=== PATIENT | male | born 1955 | race Caucasian/White ===

== ENCOUNTER 2022-12-20 14:30 | Outpatient (CLI) | payer MEDICARE, BC, SELFPAY | END 2022-12-20 14:31 | disposition home or self-care (01) | PROVIDERS: PCP Physician Assistant Medical; Visit Provider Surgery | DX: I87.331 Chronic venous hypertension (idiopathic) with ulcer and inflammation of right lower extremity (principal); L97.812 Non-pressure chronic ulcer of other part of right lower leg with fat layer exposed; E11.69 Type 2 diabetes mellitus with other specified complication; S91.002A Unspecified open wound, left ankle, initial encounter; S91.301A Unspecified open wound, right foot, initial encounter; Z79.4 Long term (current) use of insulin | CPT/HCPCS: 11042; 97597; 99213 ==

== ENCOUNTER 2022-12-22 15:11 | Outpatient (CLI) | payer MEDICARE, BC, SELFPAY | END 2022-12-22 15:12 | disposition home or self-care (01) | LOC: WOUND 15:11 | PROVIDERS: PCP Physician Assistant Medical; Visit Provider Surgery | DX: I87.331 Chronic venous hypertension (idiopathic) with ulcer and inflammation of right lower extremity (principal); L97.812 Non-pressure chronic ulcer of other part of right lower leg with fat layer exposed; E11.69 Type 2 diabetes mellitus with other specified complication; S91.002A Unspecified open wound, left ankle, initial encounter; S91.301A Unspecified open wound, right foot, initial encounter; Z79.4 Long term (current) use of insulin | CPT/HCPCS: 29581 ==

== ENCOUNTER 2022-12-25 15:45 | Outpatient (CLI) | payer MEDICARE, BC, SELFPAY | END 2022-12-25 15:46 | disposition home or self-care (01) | LOC: WOUND 15:45 | PROVIDERS: PCP Physician Assistant Medical; Visit Provider Surgery | DX: I87.311 Chronic venous hypertension (idiopathic) with ulcer of right lower extremity (principal); L97.812 Non-pressure chronic ulcer of other part of right lower leg with fat layer exposed; E11.69 Type 2 diabetes mellitus with other specified complication; S91.002A Unspecified open wound, left ankle, initial encounter; S91.301A Unspecified open wound, right foot, initial encounter; Z79.4 Long term (current) use of insulin; I87.331 Chronic venous hypertension (idiopathic) with ulcer and inflammation of right lower extremity | CPT/HCPCS: 29581 ==

== ENCOUNTER 2022-12-27 15:42 | Outpatient (CLI) | payer MEDICARE, BC, SELFPAY | END 2022-12-27 15:43 | disposition home or self-care (01) | PROVIDERS: PCP Physician Assistant Medical; Visit Provider Family Medicine | DX: I87.331 Chronic venous hypertension (idiopathic) with ulcer and inflammation of right lower extremity (principal); L97.812 Non-pressure chronic ulcer of other part of right lower leg with fat layer exposed; E11.622 Type 2 diabetes mellitus with other skin ulcer; E11.40 Type 2 diabetes mellitus with diabetic neuropathy, unspecified; L97.311 Non-pressure chronic ulcer of right ankle limited to breakdown of skin; L97.321 Non-pressure chronic ulcer of left ankle limited to breakdown of skin; Z79.4 Long term (current) use of insulin | CPT/HCPCS: 11042; 97597; 99212 ==

== ENCOUNTER 2022-12-29 14:59 | Outpatient (CLI) | payer MEDICARE, BC, SELFPAY | END 2022-12-29 15:00 | disposition home or self-care (01) | LOC: WOUND 14:59 | PROVIDERS: PCP Physician Assistant Medical; Visit Provider Family Medicine | DX: I87.331 Chronic venous hypertension (idiopathic) with ulcer and inflammation of right lower extremity (principal); L97.812 Non-pressure chronic ulcer of other part of right lower leg with fat layer exposed; E11.622 Type 2 diabetes mellitus with other skin ulcer; L97.311 Non-pressure chronic ulcer of right ankle limited to breakdown of skin; L97.321 Non-pressure chronic ulcer of left ankle limited to breakdown of skin; Z79.4 Long term (current) use of insulin | CPT/HCPCS: 29581 ==

== ENCOUNTER 2023-01-01 15:41 | Outpatient (CLI) | payer MEDICARE, BC, SELFPAY | END 2023-01-01 15:42 | disposition home or self-care (01) | LOC: WOUND 15:41 | PROVIDERS: PCP Physician Assistant Medical; Visit Provider Family Medicine | DX: I87.331 Chronic venous hypertension (idiopathic) with ulcer and inflammation of right lower extremity (principal); L97.812 Non-pressure chronic ulcer of other part of right lower leg with fat layer exposed; E11.622 Type 2 diabetes mellitus with other skin ulcer; L97.321 Non-pressure chronic ulcer of left ankle limited to breakdown of skin; Z79.4 Long term (current) use of insulin | CPT/HCPCS: 29581 ==

== ENCOUNTER 2023-01-03 15:38 | Outpatient (CLI) | payer MEDICARE, BC, SELFPAY | END 2023-01-03 15:39 | disposition home or self-care (01) | PROVIDERS: PCP Physician Assistant Medical; Visit Provider Surgery | DX: I87.331 Chronic venous hypertension (idiopathic) with ulcer and inflammation of right lower extremity (principal); L97.812 Non-pressure chronic ulcer of other part of right lower leg with fat layer exposed | CPT/HCPCS: 11042 ==

== ENCOUNTER 2023-01-05 15:40 | Outpatient (CLI) | payer MEDICARE, BC, SELFPAY | END 2023-01-05 15:41 | disposition home or self-care (01) | LOC: WOUND 15:42 | PROVIDERS: PCP Physician Assistant Medical; Visit Provider Surgery | DX: I87.331 Chronic venous hypertension (idiopathic) with ulcer and inflammation of right lower extremity (principal); L97.812 Non-pressure chronic ulcer of other part of right lower leg with fat layer exposed | CPT/HCPCS: 29581 ==

== ENCOUNTER 2023-01-08 14:00 | Outpatient (CLI) | payer MEDICARE, BC, SELFPAY | END 2023-01-08 14:01 | disposition home or self-care (01) | LOC: WOUND 14:00 | PROVIDERS: PCP Physician Assistant Medical; Visit Provider Surgery | DX: I87.331 Chronic venous hypertension (idiopathic) with ulcer and inflammation of right lower extremity (principal); L97.818 Non-pressure chronic ulcer of other part of right lower leg with other specified severity | CPT/HCPCS: 99212 ==

== ENCOUNTER 2023-01-10 14:47 | Outpatient (CLI) | payer MEDICARE, BC, SELFPAY | END 2023-01-10 14:48 | disposition home or self-care (01) | LOC: WOUND 14:47 | PROVIDERS: PCP Physician Assistant Medical; Visit Provider Nurse Practitioner Family | DX: I87.331 Chronic venous hypertension (idiopathic) with ulcer and inflammation of right lower extremity (principal); L97.812 Non-pressure chronic ulcer of other part of right lower leg with fat layer exposed | CPT/HCPCS: 29581 ==

== ENCOUNTER 2023-01-12 14:41 | Outpatient (CLI) | payer MEDICARE, BC, SELFPAY | END 2023-01-12 14:42 | disposition home or self-care (01) | LOC: WOUND 14:43 | PROVIDERS: PCP Physician Assistant Medical; Visit Provider Nurse Practitioner Family | DX: I87.331 Chronic venous hypertension (idiopathic) with ulcer and inflammation of right lower extremity (principal); L97.812 Non-pressure chronic ulcer of other part of right lower leg with fat layer exposed | CPT/HCPCS: 29581 ==

== ENCOUNTER 2023-01-15 14:21 | Outpatient (CLI) | payer MEDICARE, BC, SELFPAY | END 2023-01-15 14:22 | disposition home or self-care (01) | LOC: WOUND 14:21 | PROVIDERS: PCP Physician Assistant Medical; Visit Provider Surgery | DX: I87.331 Chronic venous hypertension (idiopathic) with ulcer and inflammation of right lower extremity (principal); L97.812 Non-pressure chronic ulcer of other part of right lower leg with fat layer exposed | CPT/HCPCS: 29581 ==

== ENCOUNTER 2023-01-17 15:45 | Outpatient (CLI) | payer MEDICARE, BC, SELFPAY | END 2023-01-17 15:46 | disposition home or self-care (01) | LOC: WOUND 15:45 | PROVIDERS: PCP Physician Assistant Medical; Visit Provider Surgery | DX: I87.331 Chronic venous hypertension (idiopathic) with ulcer and inflammation of right lower extremity (principal); L97.812 Non-pressure chronic ulcer of other part of right lower leg with fat layer exposed; E11.622 Type 2 diabetes mellitus with other skin ulcer; Z79.4 Long term (current) use of insulin | CPT/HCPCS: 11042 ==

== ENCOUNTER 2023-01-19 15:30 | Outpatient (CLI) | payer MEDICARE, BC, SELFPAY | END 2023-01-19 15:31 | disposition home or self-care (01) | LOC: WOUND 15:30 | PROVIDERS: PCP Physician Assistant Medical; Visit Provider Surgery | DX: I87.331 Chronic venous hypertension (idiopathic) with ulcer and inflammation of right lower extremity (principal); L97.812 Non-pressure chronic ulcer of other part of right lower leg with fat layer exposed | CPT/HCPCS: 29581 ==

== ENCOUNTER 2023-01-22 15:41 | Outpatient (CLI) | payer MEDICARE, BC, SELFPAY | END 2023-01-22 15:42 | disposition home or self-care (01) | LOC: WOUND 15:41 | PROVIDERS: PCP Physician Assistant Medical; Visit Provider Surgery | DX: E11.621 Type 2 diabetes mellitus with foot ulcer (principal); L97.411 Non-pressure chronic ulcer of right heel and midfoot limited to breakdown of skin; Z79.84 Long term (current) use of oral hypoglycemic drugs | CPT/HCPCS: 29581 ==

== ENCOUNTER 2023-01-24 15:34 | Outpatient (CLI) | payer MEDICARE, BC, SELFPAY | END 2023-01-24 15:35 | disposition home or self-care (01) | LOC: WOUND 15:34 | PROVIDERS: PCP Physician Assistant Medical; Visit Provider Surgery | DX: I87.331 Chronic venous hypertension (idiopathic) with ulcer and inflammation of right lower extremity (principal); I87.2 Venous insufficiency (chronic) (peripheral); L97.812 Non-pressure chronic ulcer of other part of right lower leg with fat layer exposed | CPT/HCPCS: 97597 ==

== ENCOUNTER 2023-01-26 15:16 | Outpatient (CLI) | payer MEDICARE, BC, SELFPAY | END 2023-01-26 15:17 | disposition home or self-care (01) | LOC: WOUND 15:16 | PROVIDERS: PCP Physician Assistant Medical; Visit Provider Nurse Practitioner Family | DX: I87.331 Chronic venous hypertension (idiopathic) with ulcer and inflammation of right lower extremity (principal); L97.812 Non-pressure chronic ulcer of other part of right lower leg with fat layer exposed | CPT/HCPCS: 29581 ==

== ENCOUNTER 2023-01-29 14:55 | Outpatient (CLI) | payer MEDICARE, BC, SELFPAY | END 2023-01-29 14:56 | disposition home or self-care (01) | LOC: WOUND 14:55 | PROVIDERS: PCP Physician Assistant Medical; Visit Provider Surgery | DX: I87.331 Chronic venous hypertension (idiopathic) with ulcer and inflammation of right lower extremity (principal); L97.812 Non-pressure chronic ulcer of other part of right lower leg with fat layer exposed | CPT/HCPCS: 29581 ==

== ENCOUNTER 2023-01-31 15:03 | Outpatient (CLI) | payer MEDICARE, BC, SELFPAY | END 2023-01-31 15:04 | disposition home or self-care (01) | LOC: WOUND 15:03 | PROVIDERS: PCP Physician Assistant Medical; Visit Provider Family Medicine | DX: I87.331 Chronic venous hypertension (idiopathic) with ulcer and inflammation of right lower extremity (principal); I87.2 Venous insufficiency (chronic) (peripheral); L97.812 Non-pressure chronic ulcer of other part of right lower leg with fat layer exposed | CPT/HCPCS: 11042 ==

== ENCOUNTER 2023-02-02 15:39 | Outpatient (CLI) | payer MEDICARE, BC, SELFPAY | END 2023-02-02 15:40 | disposition home or self-care (01) | LOC: WOUND 15:39 | PROVIDERS: PCP Physician Assistant Medical; Visit Provider Family Medicine | DX: I87.331 Chronic venous hypertension (idiopathic) with ulcer and inflammation of right lower extremity (principal); L97.812 Non-pressure chronic ulcer of other part of right lower leg with fat layer exposed | CPT/HCPCS: 29581 ==

== ENCOUNTER 2023-02-05 13:56 | Outpatient (CLI) | payer MEDICARE, BC, SELFPAY | END 2023-02-05 13:57 | disposition home or self-care (01) | LOC: WOUND 13:56 | PROVIDERS: PCP Physician Assistant Medical; Visit Provider Family Medicine | DX: I87.331 Chronic venous hypertension (idiopathic) with ulcer and inflammation of right lower extremity (principal); L97.812 Non-pressure chronic ulcer of other part of right lower leg with fat layer exposed | CPT/HCPCS: 29581 ==

== ENCOUNTER 2023-02-07 15:45 | Outpatient (CLI) | payer MEDICARE, BC, SELFPAY | END 2023-02-07 15:46 | disposition home or self-care (01) | LOC: WOUND 15:45 | PROVIDERS: PCP Physician Assistant Medical; Visit Provider Surgery | DX: I87.331 Chronic venous hypertension (idiopathic) with ulcer and inflammation of right lower extremity (principal); L97.812 Non-pressure chronic ulcer of other part of right lower leg with fat layer exposed; I87.2 Venous insufficiency (chronic) (peripheral) | CPT/HCPCS: 15271; Q4151 ==

== ENCOUNTER 2023-02-09 12:56 | Outpatient (CLI) | payer MEDICARE, BC, SELFPAY | END 2023-02-09 12:57 | disposition home or self-care (01) | LOC: WOUND 12:57 | PROVIDERS: PCP Physician Assistant Medical; Visit Provider Surgery | DX: I87.331 Chronic venous hypertension (idiopathic) with ulcer and inflammation of right lower extremity (principal); L97.812 Non-pressure chronic ulcer of other part of right lower leg with fat layer exposed | CPT/HCPCS: 29581 ==

== ENCOUNTER 2023-02-12 15:40 | Outpatient (CLI) | payer MEDICARE, BC, SELFPAY | END 2023-02-12 15:41 | disposition home or self-care (01) | LOC: WOUND 15:41 | PROVIDERS: PCP Physician Assistant Medical; Visit Provider Surgery | DX: I87.331 Chronic venous hypertension (idiopathic) with ulcer and inflammation of right lower extremity (principal); L97.818 Non-pressure chronic ulcer of other part of right lower leg with other specified severity | CPT/HCPCS: 29581 ==

== ENCOUNTER 2023-02-14 15:44 | Outpatient (CLI) | payer MEDICARE, BC, SELFPAY | END 2023-02-14 15:45 | disposition home or self-care (01) | LOC: WOUND 15:44 | PROVIDERS: PCP Physician Assistant Medical; Visit Provider Surgery | DX: I87.331 Chronic venous hypertension (idiopathic) with ulcer and inflammation of right lower extremity (principal); L97.812 Non-pressure chronic ulcer of other part of right lower leg with fat layer exposed; E11.621 Type 2 diabetes mellitus with foot ulcer; E11.40 Type 2 diabetes mellitus with diabetic neuropathy, unspecified; L97.411 Non-pressure chronic ulcer of right heel and midfoot limited to breakdown of skin; Z79.4 Long term (current) use of insulin | CPT/HCPCS: 97597; 99213 ==

== ENCOUNTER 2023-02-16 12:51 | Outpatient (CLI) | payer MEDICARE, BC, SELFPAY | END 2023-02-16 12:52 | disposition home or self-care (01) | LOC: WOUND 12:51 | PROVIDERS: PCP Physician Assistant Medical; Visit Provider Surgery | DX: I87.331 Chronic venous hypertension (idiopathic) with ulcer and inflammation of right lower extremity (principal); L97.818 Non-pressure chronic ulcer of other part of right lower leg with other specified severity | CPT/HCPCS: 29581 ==

== ENCOUNTER 2023-02-19 14:55 | Outpatient (CLI) | payer MEDICARE, BC, SELFPAY | END 2023-02-19 14:56 | disposition home or self-care (01) | LOC: WOUND 14:55 | PROVIDERS: PCP Physician Assistant Medical; Visit Provider Surgery | DX: I87.331 Chronic venous hypertension (idiopathic) with ulcer and inflammation of right lower extremity (principal); L97.818 Non-pressure chronic ulcer of other part of right lower leg with other specified severity | CPT/HCPCS: 29581 ==

== ENCOUNTER 2023-02-21 15:47 | Outpatient (CLI) | payer MEDICARE, BC, SELFPAY | END 2023-02-21 15:48 | disposition home or self-care (01) | LOC: WOUND 15:48 | PROVIDERS: PCP Physician Assistant Medical; Visit Provider Surgery | DX: I87.331 Chronic venous hypertension (idiopathic) with ulcer and inflammation of right lower extremity (principal); I87.2 Venous insufficiency (chronic) (peripheral); L97.818 Non-pressure chronic ulcer of other part of right lower leg with other specified severity | CPT/HCPCS: 15271; Q4151 ==

== ENCOUNTER 2023-02-26 11:23 | Outpatient (CLI) | payer MEDICARE, BC, SELFPAY | END 2023-02-26 11:24 | disposition home or self-care (01) | PROVIDERS: PCP Physician Assistant Medical; Visit Provider Surgery | DX: I87.331 Chronic venous hypertension (idiopathic) with ulcer and inflammation of right lower extremity (principal); L97.818 Non-pressure chronic ulcer of other part of right lower leg with other specified severity | CPT/HCPCS: 29581 ==

== ENCOUNTER 2023-02-28 15:36 | Outpatient (CLI) | payer MEDICARE, BC, SELFPAY | END 2023-02-28 15:37 | disposition home or self-care (01) | LOC: WOUND 15:36 | PROVIDERS: PCP Physician Assistant Medical; Visit Provider Surgery | DX: I87.331 Chronic venous hypertension (idiopathic) with ulcer and inflammation of right lower extremity (principal); I87.2 Venous insufficiency (chronic) (peripheral); L97.812 Non-pressure chronic ulcer of other part of right lower leg with fat layer exposed | CPT/HCPCS: 97597 ==

== ENCOUNTER 2023-03-02 11:27 | Outpatient (CLI) | payer MEDICARE, BC, SELFPAY | END 2023-03-02 11:28 | disposition home or self-care (01) | LOC: WOUND 11:27 | PROVIDERS: PCP Physician Assistant Medical; Visit Provider Nurse Practitioner Family | DX: I87.331 Chronic venous hypertension (idiopathic) with ulcer and inflammation of right lower extremity (principal); L97.818 Non-pressure chronic ulcer of other part of right lower leg with other specified severity | CPT/HCPCS: 29581 ==

== ENCOUNTER 2023-03-05 11:24 | Outpatient (CLI) | payer MEDICARE, BC, SELFPAY | END 2023-03-05 11:25 | disposition home or self-care (01) | LOC: WOUND 11:24 | PROVIDERS: PCP Physician Assistant Medical; Visit Provider Nurse Practitioner Family | DX: I87.331 Chronic venous hypertension (idiopathic) with ulcer and inflammation of right lower extremity (principal); L97.818 Non-pressure chronic ulcer of other part of right lower leg with other specified severity | CPT/HCPCS: 29581 ==

== ENCOUNTER 2023-03-07 15:42 | Outpatient (CLI) | payer MEDICARE, BC, SELFPAY | END 2023-03-07 15:43 | disposition home or self-care (01) | LOC: WOUND 15:42 | PROVIDERS: PCP Physician Assistant Medical; Visit Provider Surgery | DX: I87.331 Chronic venous hypertension (idiopathic) with ulcer and inflammation of right lower extremity (principal); L97.812 Non-pressure chronic ulcer of other part of right lower leg with fat layer exposed; I87.2 Venous insufficiency (chronic) (peripheral) | CPT/HCPCS: 15271; Q4151 ==

== ENCOUNTER 2023-03-09 15:33 | Outpatient (CLI) | payer MEDICARE, BC, SELFPAY | END 2023-03-09 15:34 | disposition home or self-care (01) | LOC: WOUND 15:33 | PROVIDERS: PCP Physician Assistant Medical; Visit Provider Nurse Practitioner Family | DX: I87.331 Chronic venous hypertension (idiopathic) with ulcer and inflammation of right lower extremity (principal); L97.818 Non-pressure chronic ulcer of other part of right lower leg with other specified severity | CPT/HCPCS: 29581 ==

== ENCOUNTER 2023-03-14 15:52 | Outpatient (CLI) | payer MEDICARE, BC, SELFPAY | END 2023-03-14 15:53 | disposition home or self-care (01) | LOC: WOUND 15:52 | PROVIDERS: PCP Physician Assistant Medical; Visit Provider Surgery | DX: I87.331 Chronic venous hypertension (idiopathic) with ulcer and inflammation of right lower extremity (principal); I87.2 Venous insufficiency (chronic) (peripheral); L97.812 Non-pressure chronic ulcer of other part of right lower leg with fat layer exposed | CPT/HCPCS: 11042 ==

== ENCOUNTER 2023-03-16 15:34 | Outpatient (CLI) | payer MEDICARE, BC, SELFPAY | END 2023-03-16 15:35 | disposition home or self-care (01) | LOC: WOUND 15:35 | PROVIDERS: PCP Physician Assistant Medical; Visit Provider Surgery | DX: I87.331 Chronic venous hypertension (idiopathic) with ulcer and inflammation of right lower extremity (principal); L97.818 Non-pressure chronic ulcer of other part of right lower leg with other specified severity | CPT/HCPCS: 29581 ==

== ENCOUNTER 2023-03-19 15:31 | Outpatient (CLI) | payer MEDICARE, BC, SELFPAY | END 2023-03-19 15:32 | disposition home or self-care (01) | LOC: WOUND 15:31 | PROVIDERS: PCP Physician Assistant Medical; Visit Provider Surgery | DX: I87.331 Chronic venous hypertension (idiopathic) with ulcer and inflammation of right lower extremity (principal); L97.818 Non-pressure chronic ulcer of other part of right lower leg with other specified severity | CPT/HCPCS: 29581 ==

== ENCOUNTER 2023-03-21 15:32 | Outpatient (CLI) | payer MEDICARE, BC, SELFPAY | END 2023-03-21 15:33 | disposition home or self-care (01) | LOC: WOUND 15:32 | PROVIDERS: PCP Physician Assistant Medical; Visit Provider Surgery | DX: I87.331 Chronic venous hypertension (idiopathic) with ulcer and inflammation of right lower extremity (principal); L97.812 Non-pressure chronic ulcer of other part of right lower leg with fat layer exposed | CPT/HCPCS: 11042 ==

== ENCOUNTER 2023-03-23 15:42 | Outpatient (CLI) | payer MEDICARE, BC, SELFPAY | END 2023-03-23 15:43 | disposition home or self-care (01) | LOC: WOUND 15:42 | PROVIDERS: PCP Physician Assistant Medical; Visit Provider Nurse Practitioner Family | DX: I87.331 Chronic venous hypertension (idiopathic) with ulcer and inflammation of right lower extremity (principal); L97.818 Non-pressure chronic ulcer of other part of right lower leg with other specified severity | CPT/HCPCS: 29581 ==

== ENCOUNTER 2023-03-28 15:29 | Outpatient (CLI) | payer MEDICARE, BC, SELFPAY | END 2023-03-28 15:30 | disposition home or self-care (01) | LOC: WOUND 15:29 | PROVIDERS: PCP Physician Assistant Medical; Visit Provider Surgery | DX: I87.331 Chronic venous hypertension (idiopathic) with ulcer and inflammation of right lower extremity (principal); L97.818 Non-pressure chronic ulcer of other part of right lower leg with other specified severity | CPT/HCPCS: 15271; Q4151 ==

== ENCOUNTER 2023-03-30 14:02 | Outpatient (CLI) | payer MEDICARE, BC, SELFPAY | END 2023-03-30 14:03 | disposition home or self-care (01) | LOC: WOUND 14:02 | PROVIDERS: PCP Physician Assistant Medical; Visit Provider Surgery | DX: I87.331 Chronic venous hypertension (idiopathic) with ulcer and inflammation of right lower extremity (principal); L97.818 Non-pressure chronic ulcer of other part of right lower leg with other specified severity | CPT/HCPCS: 29581 ==

== ENCOUNTER 2023-04-04 15:53 | Outpatient (CLI) | payer MEDICARE, BC, SELFPAY | END 2023-04-04 15:54 | disposition home or self-care (01) | LOC: WOUND 15:53 | PROVIDERS: PCP Physician Assistant Medical; Visit Provider Surgery | DX: I87.331 Chronic venous hypertension (idiopathic) with ulcer and inflammation of right lower extremity (principal); I87.2 Venous insufficiency (chronic) (peripheral); L97.812 Non-pressure chronic ulcer of other part of right lower leg with fat layer exposed | CPT/HCPCS: 11042; G0463 ==

== ENCOUNTER 2023-04-06 14:34 | Outpatient (CLI) | payer MEDICARE, BC, SELFPAY | END 2023-04-06 14:35 | disposition home or self-care (01) | LOC: WOUND 14:34 | PROVIDERS: PCP Physician Assistant Medical; Visit Provider Surgery | DX: I87.331 Chronic venous hypertension (idiopathic) with ulcer and inflammation of right lower extremity (principal); L97.818 Non-pressure chronic ulcer of other part of right lower leg with other specified severity | CPT/HCPCS: 29581 ==

== ENCOUNTER 2023-04-09 14:54 | Outpatient (CLI) | payer MEDICARE, BC, SELFPAY | END 2023-04-09 14:55 | disposition home or self-care (01) | LOC: WOUND 14:54 | PROVIDERS: PCP Physician Assistant Medical; Visit Provider Surgery | DX: I87.331 Chronic venous hypertension (idiopathic) with ulcer and inflammation of right lower extremity (principal); L97.818 Non-pressure chronic ulcer of other part of right lower leg with other specified severity | CPT/HCPCS: 29581 ==

== ENCOUNTER 2023-04-13 13:59 | Outpatient (CLI) | payer MEDICARE, BC, SELFPAY | END 2023-04-13 14:00 | disposition home or self-care (01) | LOC: WOUND 13:59 | PROVIDERS: PCP Physician Assistant Medical; Visit Provider Surgery | DX: I87.331 Chronic venous hypertension (idiopathic) with ulcer and inflammation of right lower extremity (principal); L97.818 Non-pressure chronic ulcer of other part of right lower leg with other specified severity | CPT/HCPCS: 29581 ==

== ENCOUNTER 2023-04-16 15:29 | Outpatient (CLI) | payer MEDICARE, BC, SELFPAY | END 2023-04-16 15:30 | disposition home or self-care (01) | LOC: WOUND 15:29 | PROVIDERS: PCP Physician Assistant Medical; Visit Provider Surgery | DX: I87.331 Chronic venous hypertension (idiopathic) with ulcer and inflammation of right lower extremity (principal); L97.818 Non-pressure chronic ulcer of other part of right lower leg with other specified severity | CPT/HCPCS: 29581 ==

== ENCOUNTER 2023-04-18 15:41 | Outpatient (CLI) | payer MEDICARE, BC, SELFPAY | END 2023-04-18 15:42 | disposition home or self-care (01) | LOC: WOUND 15:41 | PROVIDERS: PCP Physician Assistant Medical; Visit Provider Surgery | DX: I87.331 Chronic venous hypertension (idiopathic) with ulcer and inflammation of right lower extremity (principal); L97.812 Non-pressure chronic ulcer of other part of right lower leg with fat layer exposed; E11.40 Type 2 diabetes mellitus with diabetic neuropathy, unspecified; Z79.4 Long term (current) use of insulin | CPT/HCPCS: 97597 ==

== ENCOUNTER 2023-04-20 15:16 | Outpatient (CLI) | payer MEDICARE, BC, SELFPAY | END 2023-04-20 15:17 | disposition home or self-care (01) | LOC: WOUND 15:16 | PROVIDERS: PCP Physician Assistant Medical; Visit Provider Surgery | DX: I87.331 Chronic venous hypertension (idiopathic) with ulcer and inflammation of right lower extremity (principal); L97.818 Non-pressure chronic ulcer of other part of right lower leg with other specified severity | CPT/HCPCS: 29581 ==

== ENCOUNTER 2023-04-23 13:32 | Outpatient (CLI) | payer MEDICARE, BC, SELFPAY | END 2023-04-23 13:33 | disposition home or self-care (01) | LOC: WOUND 13:32 | PROVIDERS: PCP Physician Assistant Medical; Visit Provider Surgery | DX: I87.331 Chronic venous hypertension (idiopathic) with ulcer and inflammation of right lower extremity (principal); L97.818 Non-pressure chronic ulcer of other part of right lower leg with other specified severity | CPT/HCPCS: 29581 ==

== ENCOUNTER 2023-04-25 15:17 | Outpatient (CLI) | payer MEDICARE, BC, SELFPAY | END 2023-04-25 15:18 | disposition home or self-care (01) | LOC: WOUND 15:18 | PROVIDERS: PCP Physician Assistant Medical; Visit Provider Surgery | DX: I87.331 Chronic venous hypertension (idiopathic) with ulcer and inflammation of right lower extremity (principal); L97.818 Non-pressure chronic ulcer of other part of right lower leg with other specified severity | CPT/HCPCS: G0463 ==

== ENCOUNTER 2023-04-27 15:26 | Outpatient (CLI) | payer MEDICARE, BC, SELFPAY | END 2023-04-27 15:27 | disposition home or self-care (01) | LOC: WOUND 15:27 | PROVIDERS: PCP Physician Assistant Medical; Visit Provider Surgery | DX: I87.331 Chronic venous hypertension (idiopathic) with ulcer and inflammation of right lower extremity (principal); L97.818 Non-pressure chronic ulcer of other part of right lower leg with other specified severity | CPT/HCPCS: G0463 ==

== ENCOUNTER 2023-04-30 15:28 | Outpatient (CLI) | payer MEDICARE, BC, SELFPAY | END 2023-04-30 15:29 | disposition home or self-care (01) | LOC: WOUND 15:29 | PROVIDERS: PCP Physician Assistant Medical; Visit Provider Surgery | DX: I87.331 Chronic venous hypertension (idiopathic) with ulcer and inflammation of right lower extremity (principal); L97.818 Non-pressure chronic ulcer of other part of right lower leg with other specified severity | CPT/HCPCS: G0463 ==

== ENCOUNTER 2023-05-02 15:37 | Outpatient (CLI) | payer MEDICARE, BC, SELFPAY | END 2023-05-02 15:38 | disposition home or self-care (01) | LOC: WOUND 15:38 | PROVIDERS: PCP Physician Assistant Medical; Visit Provider Surgery | DX: I87.331 Chronic venous hypertension (idiopathic) with ulcer and inflammation of right lower extremity (principal); L97.812 Non-pressure chronic ulcer of other part of right lower leg with fat layer exposed | CPT/HCPCS: 97597 ==

== ENCOUNTER 2023-05-04 10:27 | Outpatient (CLI) | payer MEDICARE, BC, SELFPAY | END 2023-05-04 10:28 | disposition home or self-care (01) | LOC: WOUND 10:27 | PROVIDERS: PCP Physician Assistant Medical; Visit Provider Surgery | DX: I87.311 Chronic venous hypertension (idiopathic) with ulcer of right lower extremity (principal); L97.818 Non-pressure chronic ulcer of other part of right lower leg with other specified severity | CPT/HCPCS: G0463 ==

== ENCOUNTER 2023-05-07 15:39 | Outpatient (CLI) | payer MEDICARE, BC, SELFPAY | END 2023-05-07 15:40 | disposition home or self-care (01) | LOC: WOUND 15:39 | PROVIDERS: PCP Physician Assistant Medical; Visit Provider Surgery | DX: I87.331 Chronic venous hypertension (idiopathic) with ulcer and inflammation of right lower extremity (principal); L97.818 Non-pressure chronic ulcer of other part of right lower leg with other specified severity | CPT/HCPCS: G0463 ==

== ENCOUNTER 2023-05-09 15:37 | Outpatient (CLI) | payer MEDICARE, BC, SELFPAY | END 2023-05-09 15:38 | disposition home or self-care (01) | LOC: WOUND 15:37 | PROVIDERS: PCP Physician Assistant Medical; Visit Provider Surgery | DX: I87.331 Chronic venous hypertension (idiopathic) with ulcer and inflammation of right lower extremity (principal); I87.2 Venous insufficiency (chronic) (peripheral); L97.812 Non-pressure chronic ulcer of other part of right lower leg with fat layer exposed; E11.40 Type 2 diabetes mellitus with diabetic neuropathy, unspecified; Z79.4 Long term (current) use of insulin | CPT/HCPCS: 97597 ==

== ENCOUNTER 2023-05-11 15:12 | Outpatient (CLI) | payer MEDICARE, BC, SELFPAY | END 2023-05-11 15:13 | disposition home or self-care (01) | LOC: WOUND 15:12 | PROVIDERS: PCP Physician Assistant Medical; Visit Provider Surgery | DX: I87.331 Chronic venous hypertension (idiopathic) with ulcer and inflammation of right lower extremity (principal); L97.812 Non-pressure chronic ulcer of other part of right lower leg with fat layer exposed | CPT/HCPCS: G0463 ==

== ENCOUNTER 2023-05-14 15:37 | Outpatient (CLI) | payer MEDICARE, BC, SELFPAY | END 2023-05-14 15:38 | disposition home or self-care (01) | LOC: WOUND 15:37 | PROVIDERS: PCP Physician Assistant Medical; Visit Provider Surgery | DX: I87.331 Chronic venous hypertension (idiopathic) with ulcer and inflammation of right lower extremity (principal); L97.818 Non-pressure chronic ulcer of other part of right lower leg with other specified severity | CPT/HCPCS: G0463 ==

== ENCOUNTER 2023-05-16 15:40 | Outpatient (CLI) | payer MEDICARE, BC, SELFPAY | END 2023-05-16 15:41 | disposition home or self-care (01) | LOC: WOUND 15:40 | PROVIDERS: PCP Physician Assistant Medical; Visit Provider Surgery | DX: I87.331 Chronic venous hypertension (idiopathic) with ulcer and inflammation of right lower extremity (principal); E11.40 Type 2 diabetes mellitus with diabetic neuropathy, unspecified; L97.812 Non-pressure chronic ulcer of other part of right lower leg with fat layer exposed; Z79.4 Long term (current) use of insulin | CPT/HCPCS: 97597 ==

== ENCOUNTER 2023-05-18 15:32 | Outpatient (CLI) | payer MEDICARE, BC, SELFPAY | END 2023-05-18 15:33 | disposition home or self-care (01) | LOC: WOUND 15:32 | PROVIDERS: PCP Physician Assistant Medical; Visit Provider Surgery | DX: I87.331 Chronic venous hypertension (idiopathic) with ulcer and inflammation of right lower extremity (principal); E11.40 Type 2 diabetes mellitus with diabetic neuropathy, unspecified; L97.818 Non-pressure chronic ulcer of other part of right lower leg with other specified severity | CPT/HCPCS: G0463 ==

== ENCOUNTER 2023-05-21 15:33 | Outpatient (CLI) | payer MEDICARE, BC, SELFPAY | END 2023-05-21 15:34 | disposition home or self-care (01) | LOC: WOUND 15:33 | PROVIDERS: PCP Physician Assistant Medical; Visit Provider Surgery | DX: I87.331 Chronic venous hypertension (idiopathic) with ulcer and inflammation of right lower extremity (principal); L97.818 Non-pressure chronic ulcer of other part of right lower leg with other specified severity | CPT/HCPCS: G0463 ==

== ENCOUNTER 2023-05-22 08:38 | Outpatient (CLI) | payer MEDICARE, BC, SELFPAY | END 2023-05-22 08:39 | disposition home or self-care (01) | LOC: INJ CL 08:38 | PROVIDERS: PCP Physician Assistant Medical; Visit Provider Family Medicine | DX: M54.16 Radiculopathy, lumbar region (principal); M51.36 Other intervertebral disc degeneration, lumbar region | CPT/HCPCS: 64483; J1100; Q9966 ==

== ENCOUNTER 2023-05-23 15:02 | Outpatient (CLI) | payer MEDICARE, BC, SELFPAY | END 2023-05-23 15:03 | disposition home or self-care (01) | LOC: WOUND 15:02 | PROVIDERS: PCP Physician Assistant Medical; Visit Provider Physician Assistant | DX: I87.331 Chronic venous hypertension (idiopathic) with ulcer and inflammation of right lower extremity (principal); E11.40 Type 2 diabetes mellitus with diabetic neuropathy, unspecified; L97.812 Non-pressure chronic ulcer of other part of right lower leg with fat layer exposed; Z79.84 Long term (current) use of oral hypoglycemic drugs | CPT/HCPCS: 97597 ==

== ENCOUNTER 2023-05-25 14:07 | Outpatient (CLI) | payer MEDICARE, BC, SELFPAY | END 2023-05-25 14:08 | disposition home or self-care (01) | LOC: WOUND 14:08 | PROVIDERS: PCP Physician Assistant Medical; Visit Provider Surgery | DX: I87.331 Chronic venous hypertension (idiopathic) with ulcer and inflammation of right lower extremity (principal); L97.818 Non-pressure chronic ulcer of other part of right lower leg with other specified severity | CPT/HCPCS: G0463 ==

== ENCOUNTER 2023-05-28 14:49 | Outpatient (CLI) | payer MEDICARE, BC, SELFPAY | END 2023-05-28 14:50 | disposition home or self-care (01) | LOC: WOUND 14:50 | PROVIDERS: PCP Physician Assistant Medical; Visit Provider Surgery | DX: I87.331 Chronic venous hypertension (idiopathic) with ulcer and inflammation of right lower extremity (principal); L97.818 Non-pressure chronic ulcer of other part of right lower leg with other specified severity | CPT/HCPCS: G0463 ==

== ENCOUNTER 2023-05-30 14:45 | Outpatient (CLI) | payer MEDICARE, BC, SELFPAY | END 2023-05-30 14:46 | disposition home or self-care (01) | LOC: WOUND 14:46 | PROVIDERS: PCP Physician Assistant Medical; Visit Provider Surgery | DX: I87.331 Chronic venous hypertension (idiopathic) with ulcer and inflammation of right lower extremity (principal); I87.2 Venous insufficiency (chronic) (peripheral); L97.812 Non-pressure chronic ulcer of other part of right lower leg with fat layer exposed | CPT/HCPCS: 97597 ==

== ENCOUNTER 2023-06-04 15:26 | Outpatient (CLI) | payer MEDICARE, BC, SELFPAY | END 2023-06-04 15:27 | disposition home or self-care (01) | LOC: WOUND 15:27 | PROVIDERS: PCP Physician Assistant Medical; Visit Provider Physician Assistant | DX: I87.311 Chronic venous hypertension (idiopathic) with ulcer of right lower extremity (principal); L97.818 Non-pressure chronic ulcer of other part of right lower leg with other specified severity | CPT/HCPCS: G0463 ==

== ENCOUNTER 2023-06-06 14:27 | Outpatient (CLI) | payer MEDICARE, BC, SELFPAY | END 2023-06-06 14:28 | disposition home or self-care (01) | LOC: WOUND 14:27 | PROVIDERS: PCP Physician Assistant Medical; Visit Provider Surgery | DX: I87.2 Venous insufficiency (chronic) (peripheral) (principal); E11.40 Type 2 diabetes mellitus with diabetic neuropathy, unspecified; L97.812 Non-pressure chronic ulcer of other part of right lower leg with fat layer exposed; Z79.4 Long term (current) use of insulin | CPT/HCPCS: 97597 ==

== ENCOUNTER 2023-06-08 15:20 | Outpatient (CLI) | payer MEDICARE, BC, SELFPAY | END 2023-06-08 15:21 | disposition home or self-care (01) | LOC: WOUND 15:20 | PROVIDERS: PCP Physician Assistant Medical; Visit Provider Surgery | DX: I87.311 Chronic venous hypertension (idiopathic) with ulcer of right lower extremity (principal); L97.812 Non-pressure chronic ulcer of other part of right lower leg with fat layer exposed | CPT/HCPCS: G0463 ==

== ENCOUNTER 2023-06-11 15:00 | Outpatient (CLI) | payer MEDICARE, BC, SELFPAY | END 2023-06-11 15:01 | disposition home or self-care (01) | LOC: WOUND 15:00 | PROVIDERS: PCP Physician Assistant Medical; Visit Provider Surgery | DX: I87.2 Venous insufficiency (chronic) (peripheral) (principal); L97.212 Non-pressure chronic ulcer of right calf with fat layer exposed | CPT/HCPCS: G0463 ==

== ENCOUNTER 2023-06-13 15:00 | Outpatient (CLI) | payer MEDICARE, BC, SELFPAY | END 2023-06-13 15:01 | disposition home or self-care (01) | LOC: WOUND 15:00 | PROVIDERS: PCP Physician Assistant Medical; Visit Provider Family Medicine | DX: I87.311 Chronic venous hypertension (idiopathic) with ulcer of right lower extremity (principal); L97.812 Non-pressure chronic ulcer of other part of right lower leg with fat layer exposed | CPT/HCPCS: 11042 ==

== ENCOUNTER 2023-06-15 14:57 | Outpatient (CLI) | payer MEDICARE, BC, SELFPAY | END 2023-06-15 14:58 | disposition home or self-care (01) | LOC: WOUND 14:58 | PROVIDERS: PCP Physician Assistant Medical; Visit Provider Surgery | DX: I87.311 Chronic venous hypertension (idiopathic) with ulcer of right lower extremity (principal); L97.812 Non-pressure chronic ulcer of other part of right lower leg with fat layer exposed | CPT/HCPCS: G0463 ==

== ENCOUNTER 2023-06-18 14:03 | Outpatient (CLI) | payer MEDICARE, BC, SELFPAY | END 2023-06-18 14:04 | disposition home or self-care (01) | LOC: WOUND 14:03 | PROVIDERS: PCP Physician Assistant Medical; Visit Provider Surgery | DX: Z48.00 Encounter for change or removal of nonsurgical wound dressing (principal) | CPT/HCPCS: G0463 ==

== ENCOUNTER 2023-06-20 15:12 | Outpatient (CLI) | payer MEDICARE, BC, SELFPAY | END 2023-06-20 15:13 | disposition home or self-care (01) | LOC: WOUND 15:12 | PROVIDERS: PCP Physician Assistant Medical; Visit Provider Surgery | DX: I87.2 Venous insufficiency (chronic) (peripheral) (principal); I87.311 Chronic venous hypertension (idiopathic) with ulcer of right lower extremity; L97.818 Non-pressure chronic ulcer of other part of right lower leg with other specified severity; E11.40 Type 2 diabetes mellitus with diabetic neuropathy, unspecified; Z79.84 Long term (current) use of oral hypoglycemic drugs | CPT/HCPCS: G0463 ==

== ENCOUNTER 2024-01-15 13:43 | Outpatient (CLI) | payer MEDICARE, BC, SELFPAY | END 2024-01-15 13:44 | disposition home or self-care (01) | LOC: WOUND 13:44 | PROVIDERS: PCP Physician Assistant Medical; Visit Provider Nurse Practitioner Family | DX: E11.622 Type 2 diabetes mellitus with other skin ulcer (principal); I87.2 Venous insufficiency (chronic) (peripheral); L97.828 Non-pressure chronic ulcer of other part of left lower leg with other specified severity; L97.228 Non-pressure chronic ulcer of left calf with other specified severity; Z79.84 Long term (current) use of oral hypoglycemic drugs | CPT/HCPCS: 11042; 87070; 87186; G0463 ==

== ENCOUNTER 2024-01-18 11:31 | Outpatient (CLI) | payer MEDICARE, BC, SELFPAY | END 2024-01-18 11:32 | disposition home or self-care (01) | LOC: WOUND 11:32 | PROVIDERS: PCP Physician Assistant Medical; Visit Provider Nurse Practitioner Family | DX: E11.622 Type 2 diabetes mellitus with other skin ulcer (principal); I87.2 Venous insufficiency (chronic) (peripheral); L97.228 Non-pressure chronic ulcer of left calf with other specified severity | CPT/HCPCS: 29581 ==

== ENCOUNTER 2024-01-22 13:09 | Outpatient (CLI) | payer MEDICARE, BC, SELFPAY | END 2024-01-22 13:10 | disposition home or self-care (01) | LOC: WOUND 13:09 | PROVIDERS: PCP Physician Assistant Medical; Visit Provider Nurse Practitioner Family | DX: E11.622 Type 2 diabetes mellitus with other skin ulcer (principal); I87.2 Venous insufficiency (chronic) (peripheral); L97.228 Non-pressure chronic ulcer of left calf with other specified severity; L97.828 Non-pressure chronic ulcer of other part of left lower leg with other specified severity; B96.89 Other specified bacterial agents as the cause of diseases classified elsewhere; Z79.4 Long term (current) use of insulin | CPT/HCPCS: 11042; 96372; J0696 ==

== ENCOUNTER 2024-01-25 11:12 | Outpatient (CLI) | payer MEDICARE, BC, SELFPAY | END 2024-01-25 11:13 | disposition home or self-care (01) | LOC: WOUND 11:13 | PROVIDERS: PCP Physician Assistant Medical; Visit Provider Nurse Practitioner Family | DX: E11.622 Type 2 diabetes mellitus with other skin ulcer (principal); I87.2 Venous insufficiency (chronic) (peripheral); L97.228 Non-pressure chronic ulcer of left calf with other specified severity; Z79.4 Long term (current) use of insulin | CPT/HCPCS: 29581 ==

== ENCOUNTER 2024-01-29 13:22 | Outpatient (CLI) | payer MEDICARE, BC, SELFPAY | END 2024-01-29 13:23 | disposition home or self-care (01) | LOC: WOUND 13:22 | PROVIDERS: PCP Physician Assistant Medical; Visit Provider Nurse Practitioner Family | DX: I87.2 Venous insufficiency (chronic) (peripheral) (principal); E11.622 Type 2 diabetes mellitus with other skin ulcer; L97.228 Non-pressure chronic ulcer of left calf with other specified severity; L97.822 Non-pressure chronic ulcer of other part of left lower leg with fat layer exposed | CPT/HCPCS: 11042; 97597 ==

== ENCOUNTER 2024-02-01 15:42 | Outpatient (CLI) | payer MEDICARE, BC, SELFPAY | END 2024-02-01 15:43 | disposition home or self-care (01) | LOC: WOUND 15:42 | PROVIDERS: PCP Physician Assistant Medical; Visit Provider Nurse Practitioner Family | DX: E11.622 Type 2 diabetes mellitus with other skin ulcer (principal); I87.2 Venous insufficiency (chronic) (peripheral); L97.222 Non-pressure chronic ulcer of left calf with fat layer exposed | CPT/HCPCS: G0463 ==

== ENCOUNTER 2024-02-05 13:01 | Outpatient (CLI) | payer MEDICARE, BC, SELFPAY | END 2024-02-05 13:02 | disposition home or self-care (01) | LOC: WOUND 13:01 | PROVIDERS: PCP Physician Assistant Medical; Visit Provider Nurse Practitioner Family | DX: I87.2 Venous insufficiency (chronic) (peripheral) (principal); E11.622 Type 2 diabetes mellitus with other skin ulcer; L97.228 Non-pressure chronic ulcer of left calf with other specified severity; L97.828 Non-pressure chronic ulcer of other part of left lower leg with other specified severity; Z79.84 Long term (current) use of oral hypoglycemic drugs | CPT/HCPCS: 97597 ==

== ENCOUNTER 2024-02-08 14:58 | Outpatient (CLI) | payer MEDICARE, BC, SELFPAY | END 2024-02-08 14:59 | disposition home or self-care (01) | LOC: WOUND 14:59 | PROVIDERS: PCP Physician Assistant Medical; Visit Provider Nurse Practitioner Family | DX: E11.622 Type 2 diabetes mellitus with other skin ulcer (principal); I87.2 Venous insufficiency (chronic) (peripheral); L97.228 Non-pressure chronic ulcer of left calf with other specified severity; Z79.84 Long term (current) use of oral hypoglycemic drugs | CPT/HCPCS: G0463 ==

== ENCOUNTER 2024-02-12 13:13 | Outpatient (CLI) | payer MEDICARE, BC, SELFPAY | END 2024-02-12 13:14 | disposition home or self-care (01) | LOC: WOUND 13:13 | PROVIDERS: PCP Physician Assistant Medical; Visit Provider Family Medicine | DX: I87.2 Venous insufficiency (chronic) (peripheral) (principal); E11.622 Type 2 diabetes mellitus with other skin ulcer; L97.222 Non-pressure chronic ulcer of left calf with fat layer exposed; L97.822 Non-pressure chronic ulcer of other part of left lower leg with fat layer exposed; Z79.84 Long term (current) use of oral hypoglycemic drugs | CPT/HCPCS: 11042; G0463 ==

== ENCOUNTER 2024-02-13 14:50 | Outpatient (REF) | payer MEDICARE, BC, SELFPAY ==
[2024-02-13 16:03] LABS: C.Difficile Negative (Negative); CDIFFEPI 027 PRESUMPTIVE NEGATIVE (Negative)
== END 2024-02-13 14:51 | disposition home or self-care (01) ==
LOC: NPINS 14:50
PROVIDERS: PCP Physician Assistant Medical; Visit Provider Family Medicine
DX: A09 Infectious gastroenteritis and colitis, unspecified (principal)
CPT/HCPCS: 87493

== ENCOUNTER 2024-02-15 12:39 | Outpatient (CLI) | payer MEDICARE, BC, SELFPAY | END 2024-02-15 12:40 | disposition home or self-care (01) | LOC: WOUND 12:39 | PROVIDERS: PCP Physician Assistant Medical; Visit Provider Family Medicine | DX: I87.2 Venous insufficiency (chronic) (peripheral) (principal); E11.621 Type 2 diabetes mellitus with foot ulcer; L97.228 Non-pressure chronic ulcer of left calf with other specified severity; Z79.84 Long term (current) use of oral hypoglycemic drugs | CPT/HCPCS: G0463 ==

== ENCOUNTER 2024-02-19 13:15 | Outpatient (CLI) | payer MEDICARE, BC, SELFPAY | END 2024-02-19 13:16 | disposition home or self-care (01) | LOC: WOUND 13:15 | PROVIDERS: PCP Physician Assistant Medical; Visit Provider Nurse Practitioner Family | DX: I87.2 Venous insufficiency (chronic) (peripheral) (principal); E11.622 Type 2 diabetes mellitus with other skin ulcer; L97.228 Non-pressure chronic ulcer of left calf with other specified severity; L97.828 Non-pressure chronic ulcer of other part of left lower leg with other specified severity; Z79.84 Long term (current) use of oral hypoglycemic drugs | CPT/HCPCS: 11042 ==

== ENCOUNTER 2024-02-22 11:25 | Outpatient (CLI) | payer MEDICARE, BC, SELFPAY | END 2024-02-22 11:26 | disposition home or self-care (01) | LOC: WOUND 11:26 | PROVIDERS: PCP Physician Assistant Medical; Visit Provider Nurse Practitioner Family | DX: I87.2 Venous insufficiency (chronic) (peripheral) (principal); E11.622 Type 2 diabetes mellitus with other skin ulcer; L97.228 Non-pressure chronic ulcer of left calf with other specified severity; Z79.4 Long term (current) use of insulin | CPT/HCPCS: G0463 ==

== ENCOUNTER 2024-02-26 13:28 | Outpatient (CLI) | payer MEDICARE, BC, SELFPAY | END 2024-02-26 13:29 | disposition home or self-care (01) | LOC: WOUND 13:28 | PROVIDERS: PCP Physician Assistant Medical; Visit Provider Nurse Practitioner Family | DX: I87.2 Venous insufficiency (chronic) (peripheral) (principal); L97.228 Non-pressure chronic ulcer of left calf with other specified severity; L97.828 Non-pressure chronic ulcer of other part of left lower leg with other specified severity | CPT/HCPCS: 97597 ==

== ENCOUNTER 2024-02-29 12:46 | Outpatient (CLI) | payer MEDICARE, BC, SELFPAY | END 2024-02-29 12:47 | disposition home or self-care (01) | LOC: WOUND 12:46 | PROVIDERS: PCP Physician Assistant Medical; Visit Provider Nurse Practitioner Family | DX: I87.2 Venous insufficiency (chronic) (peripheral) (principal); E11.622 Type 2 diabetes mellitus with other skin ulcer; L97.228 Non-pressure chronic ulcer of left calf with other specified severity; Z79.4 Long term (current) use of insulin | CPT/HCPCS: G0463 ==

== ENCOUNTER 2024-03-04 13:14 | Outpatient (CLI) | payer MEDICARE, BC, SELFPAY | END 2024-03-04 13:15 | disposition home or self-care (01) | LOC: WOUND 13:14 | PROVIDERS: PCP Physician Assistant Medical; Visit Provider Nurse Practitioner Family | DX: I87.2 Venous insufficiency (chronic) (peripheral) (principal); E11.622 Type 2 diabetes mellitus with other skin ulcer; L97.228 Non-pressure chronic ulcer of left calf with other specified severity; L97.828 Non-pressure chronic ulcer of other part of left lower leg with other specified severity; Z79.4 Long term (current) use of insulin | CPT/HCPCS: 11042; 97597 ==

== ENCOUNTER 2024-03-07 12:59 | Outpatient (CLI) | payer MEDICARE, BC, SELFPAY | END 2024-03-07 13:00 | disposition home or self-care (01) | LOC: WOUND 12:59 | PROVIDERS: PCP Physician Assistant Medical; Visit Provider Nurse Practitioner Family | DX: I87.2 Venous insufficiency (chronic) (peripheral) (principal); E11.622 Type 2 diabetes mellitus with other skin ulcer; L97.228 Non-pressure chronic ulcer of left calf with other specified severity; Z79.4 Long term (current) use of insulin | CPT/HCPCS: G0463 ==

== ENCOUNTER 2024-03-11 13:12 | Outpatient (CLI) | payer MEDICARE, BC, SELFPAY | END 2024-03-11 13:13 | disposition home or self-care (01) | LOC: WOUND 13:12 | PROVIDERS: PCP Physician Assistant Medical; Visit Provider Nurse Practitioner Family | DX: I87.2 Venous insufficiency (chronic) (peripheral) (principal); E11.622 Type 2 diabetes mellitus with other skin ulcer; L97.228 Non-pressure chronic ulcer of left calf with other specified severity; L97.828 Non-pressure chronic ulcer of other part of left lower leg with other specified severity; Z79.4 Long term (current) use of insulin | CPT/HCPCS: 97597; 97598 ==

== ENCOUNTER 2024-03-14 14:34 | Outpatient (CLI) | payer MEDICARE, BC, SELFPAY | END 2024-03-14 14:35 | disposition home or self-care (01) | LOC: WOUND 14:34 | PROVIDERS: PCP Physician Assistant Medical; Visit Provider Nurse Practitioner Family | DX: Z48.00 Encounter for change or removal of nonsurgical wound dressing (principal); E11.622 Type 2 diabetes mellitus with other skin ulcer; I87.2 Venous insufficiency (chronic) (peripheral); L97.228 Non-pressure chronic ulcer of left calf with other specified severity; Z79.84 Long term (current) use of oral hypoglycemic drugs | CPT/HCPCS: G0463 ==

== ENCOUNTER 2024-03-18 13:18 | Outpatient (CLI) | payer MEDICARE, BC, SELFPAY | END 2024-03-18 13:19 | disposition home or self-care (01) | LOC: WOUND 13:18 | PROVIDERS: PCP Physician Assistant Medical; Visit Provider Nurse Practitioner Family | DX: I87.2 Venous insufficiency (chronic) (peripheral) (principal); E11.622 Type 2 diabetes mellitus with other skin ulcer; L97.828 Non-pressure chronic ulcer of other part of left lower leg with other specified severity; L97.822 Non-pressure chronic ulcer of other part of left lower leg with fat layer exposed; L97.222 Non-pressure chronic ulcer of left calf with fat layer exposed; Z79.4 Long term (current) use of insulin | CPT/HCPCS: 11042; 97597 ==

== ENCOUNTER 2024-03-21 12:59 | Outpatient (CLI) | payer MEDICARE, BC, SELFPAY | END 2024-03-21 13:00 | disposition home or self-care (01) | LOC: WOUND 12:59 | PROVIDERS: PCP Physician Assistant Medical; Visit Provider Nurse Practitioner Family | DX: Z48.00 Encounter for change or removal of nonsurgical wound dressing (principal); I87.2 Venous insufficiency (chronic) (peripheral); E11.622 Type 2 diabetes mellitus with other skin ulcer; L97.822 Non-pressure chronic ulcer of other part of left lower leg with fat layer exposed; L97.228 Non-pressure chronic ulcer of left calf with other specified severity | CPT/HCPCS: G0463 ==

== ENCOUNTER 2024-03-24 13:46 | Outpatient (CLI) | payer MEDICARE, BC, SELFPAY | END 2024-03-24 13:47 | disposition home or self-care (01) | LOC: WOUND 13:46 | PROVIDERS: PCP Physician Assistant Medical; Visit Provider Nurse Practitioner Family | DX: Z48.00 Encounter for change or removal of nonsurgical wound dressing (principal); I87.2 Venous insufficiency (chronic) (peripheral); E11.622 Type 2 diabetes mellitus with other skin ulcer; L97.222 Non-pressure chronic ulcer of left calf with fat layer exposed | CPT/HCPCS: G0463 ==

== ENCOUNTER 2024-03-27 14:58 | Outpatient (CLI) | payer MEDICARE, BC, SELFPAY | END 2024-03-27 14:59 | disposition home or self-care (01) | LOC: WOUND 14:58 | PROVIDERS: PCP Physician Assistant Medical; Visit Provider Nurse Practitioner Family | DX: I87.2 Venous insufficiency (chronic) (peripheral) (principal); E11.622 Type 2 diabetes mellitus with other skin ulcer; L97.822 Non-pressure chronic ulcer of other part of left lower leg with fat layer exposed | CPT/HCPCS: G0463 ==

== ENCOUNTER 2024-03-31 13:44 | Outpatient (CLI) | payer MEDICARE, BC, SELFPAY | END 2024-03-31 13:45 | disposition home or self-care (01) | LOC: WOUND 13:45 | PROVIDERS: PCP Physician Assistant Medical; Visit Provider Nurse Practitioner Family | DX: I87.2 Venous insufficiency (chronic) (peripheral) (principal); L97.228 Non-pressure chronic ulcer of left calf with other specified severity; L97.822 Non-pressure chronic ulcer of other part of left lower leg with fat layer exposed; L97.222 Non-pressure chronic ulcer of left calf with fat layer exposed; Z79.84 Long term (current) use of oral hypoglycemic drugs | CPT/HCPCS: 11042 ==

== ENCOUNTER 2024-04-03 15:47 | Outpatient (CLI) | payer MEDICARE, BC, SELFPAY | END 2024-04-03 15:48 | disposition home or self-care (01) | LOC: WOUND 15:50 | PROVIDERS: PCP Physician Assistant Medical; Visit Provider Nurse Practitioner Family | DX: I87.2 Venous insufficiency (chronic) (peripheral) (principal); E11.622 Type 2 diabetes mellitus with other skin ulcer; L97.222 Non-pressure chronic ulcer of left calf with fat layer exposed | CPT/HCPCS: G0463 ==

== ENCOUNTER 2024-04-07 14:14 | Outpatient (CLI) | payer MEDICARE, BC, SELFPAY | END 2024-04-07 14:15 | disposition home or self-care (01) | LOC: WOUND 14:15 | PROVIDERS: PCP Physician Assistant Medical; Visit Provider Nurse Practitioner Family | DX: I87.2 Venous insufficiency (chronic) (peripheral) (principal); E11.622 Type 2 diabetes mellitus with other skin ulcer; L97.228 Non-pressure chronic ulcer of left calf with other specified severity; L97.822 Non-pressure chronic ulcer of other part of left lower leg with fat layer exposed | CPT/HCPCS: 97597 ==

== ENCOUNTER 2024-04-10 15:40 | Outpatient (CLI) | payer MEDICARE, BC, SELFPAY | END 2024-04-10 15:41 | disposition home or self-care (01) | LOC: WOUND 15:40 | PROVIDERS: PCP Physician Assistant Medical; Visit Provider Nurse Practitioner Family | DX: I87.2 Venous insufficiency (chronic) (peripheral) (principal); E11.622 Type 2 diabetes mellitus with other skin ulcer; L97.822 Non-pressure chronic ulcer of other part of left lower leg with fat layer exposed | CPT/HCPCS: G0463 ==

== ENCOUNTER 2024-04-15 12:57 | Outpatient (CLI) | payer MEDICARE, BC, SELFPAY | END 2024-04-15 12:58 | disposition home or self-care (01) | LOC: WOUND 12:58 | PROVIDERS: PCP Physician Assistant Medical; Visit Provider Nurse Practitioner Family | DX: I87.2 Venous insufficiency (chronic) (peripheral) (principal); E11.622 Type 2 diabetes mellitus with other skin ulcer; L97.228 Non-pressure chronic ulcer of left calf with other specified severity; L97.828 Non-pressure chronic ulcer of other part of left lower leg with other specified severity; Z79.84 Long term (current) use of oral hypoglycemic drugs | CPT/HCPCS: 11042 ==

== ENCOUNTER 2024-04-18 15:16 | Outpatient (CLI) | payer MEDICARE, BC, SELFPAY | END 2024-04-18 15:17 | disposition home or self-care (01) | LOC: WOUND 15:16 | PROVIDERS: PCP Physician Assistant Medical; Visit Provider Nurse Practitioner Family | DX: I87.2 Venous insufficiency (chronic) (peripheral) (principal); E11.622 Type 2 diabetes mellitus with other skin ulcer; L97.822 Non-pressure chronic ulcer of other part of left lower leg with fat layer exposed; L97.222 Non-pressure chronic ulcer of left calf with fat layer exposed | CPT/HCPCS: G0463 ==

== ENCOUNTER 2024-04-22 13:12 | Outpatient (CLI) | payer MEDICARE, BC, SELFPAY | END 2024-04-22 13:13 | disposition home or self-care (01) | LOC: WOUND 13:12 | PROVIDERS: PCP Physician Assistant Medical; Visit Provider Nurse Practitioner Family | DX: I87.2 Venous insufficiency (chronic) (peripheral) (principal); E11.622 Type 2 diabetes mellitus with other skin ulcer; L97.222 Non-pressure chronic ulcer of left calf with fat layer exposed; L97.822 Non-pressure chronic ulcer of other part of left lower leg with fat layer exposed; Z79.84 Long term (current) use of oral hypoglycemic drugs | CPT/HCPCS: 11042 ==

== ENCOUNTER 2024-04-25 14:30 | Outpatient (CLI) | payer MEDICARE, BC, SELFPAY | END 2024-04-25 14:31 | disposition home or self-care (01) | LOC: WOUND 14:30 | PROVIDERS: PCP Physician Assistant Medical; Visit Provider Nurse Practitioner Family | DX: E11.622 Type 2 diabetes mellitus with other skin ulcer (principal); I87.2 Venous insufficiency (chronic) (peripheral); L97.222 Non-pressure chronic ulcer of left calf with fat layer exposed; L97.812 Non-pressure chronic ulcer of other part of right lower leg with fat layer exposed; Z79.4 Long term (current) use of insulin | CPT/HCPCS: G0463 ==

== ENCOUNTER 2024-04-29 13:14 | Outpatient (CLI) | payer MEDICARE, BC, SELFPAY | END 2024-04-29 13:15 | disposition home or self-care (01) | LOC: WOUND 13:15 | PROVIDERS: PCP Physician Assistant Medical; Visit Provider Nurse Practitioner Family | DX: I87.2 Venous insufficiency (chronic) (peripheral) (principal); E11.622 Type 2 diabetes mellitus with other skin ulcer; L97.222 Non-pressure chronic ulcer of left calf with fat layer exposed; L97.822 Non-pressure chronic ulcer of other part of left lower leg with fat layer exposed; Z79.4 Long term (current) use of insulin; Z79.84 Long term (current) use of oral hypoglycemic drugs | CPT/HCPCS: 97597 ==

== ENCOUNTER 2024-05-02 13:31 | Outpatient (CLI) | payer MEDICARE, BC, SELFPAY | END 2024-05-02 13:32 | disposition home or self-care (01) | LOC: WOUND 13:31 | PROVIDERS: PCP Physician Assistant Medical; Visit Provider Nurse Practitioner Family | DX: I87.2 Venous insufficiency (chronic) (peripheral) (principal); E11.622 Type 2 diabetes mellitus with other skin ulcer; L97.222 Non-pressure chronic ulcer of left calf with fat layer exposed; L97.822 Non-pressure chronic ulcer of other part of left lower leg with fat layer exposed; Z79.4 Long term (current) use of insulin; Z79.84 Long term (current) use of oral hypoglycemic drugs | CPT/HCPCS: G0463 ==

== ENCOUNTER 2024-05-06 13:16 | Outpatient (CLI) | payer MEDICARE, BC, SELFPAY | END 2024-05-06 13:17 | disposition home or self-care (01) | LOC: WOUND 13:16 | PROVIDERS: PCP Physician Assistant Medical; Visit Provider Nurse Practitioner Family | DX: I87.2 Venous insufficiency (chronic) (peripheral) (principal); E11.622 Type 2 diabetes mellitus with other skin ulcer; L97.222 Non-pressure chronic ulcer of left calf with fat layer exposed; L97.822 Non-pressure chronic ulcer of other part of left lower leg with fat layer exposed; Z79.84 Long term (current) use of oral hypoglycemic drugs | CPT/HCPCS: 97597 ==

== ENCOUNTER 2024-05-09 14:34 | Outpatient (CLI) | payer MEDICARE, BC, SELFPAY | END 2024-05-09 14:35 | disposition home or self-care (01) | LOC: WOUND 14:34 | PROVIDERS: PCP Physician Assistant Medical; Visit Provider Nurse Practitioner Family | DX: I87.2 Venous insufficiency (chronic) (peripheral) (principal); E11.622 Type 2 diabetes mellitus with other skin ulcer; L97.822 Non-pressure chronic ulcer of other part of left lower leg with fat layer exposed; L97.222 Non-pressure chronic ulcer of left calf with fat layer exposed; Z79.84 Long term (current) use of oral hypoglycemic drugs | CPT/HCPCS: G0463 ==

== ENCOUNTER 2024-05-13 13:14 | Outpatient (CLI) | payer MEDICARE, BC, SELFPAY | END 2024-05-13 13:15 | disposition home or self-care (01) | LOC: WOUND 13:14 | PROVIDERS: PCP Physician Assistant Medical; Visit Provider Nurse Practitioner Family | DX: I87.2 Venous insufficiency (chronic) (peripheral) (principal); L97.822 Non-pressure chronic ulcer of other part of left lower leg with fat layer exposed; L97.228 Non-pressure chronic ulcer of left calf with other specified severity | CPT/HCPCS: 97597 ==

== ENCOUNTER 2024-05-16 11:25 | Outpatient (CLI) | payer MEDICARE, BC, SELFPAY | END 2024-05-16 11:26 | disposition home or self-care (01) | LOC: WOUND 11:26 | PROVIDERS: PCP Physician Assistant Medical; Visit Provider Nurse Practitioner Family | DX: I87.2 Venous insufficiency (chronic) (peripheral) (principal); L97.822 Non-pressure chronic ulcer of other part of left lower leg with fat layer exposed; L97.222 Non-pressure chronic ulcer of left calf with fat layer exposed | CPT/HCPCS: G0463 ==

== ENCOUNTER 2024-05-20 13:11 | Outpatient (CLI) | payer MEDICARE, BC, SELFPAY | END 2024-05-20 13:12 | disposition home or self-care (01) | LOC: WOUND 13:11 | PROVIDERS: PCP Physician Assistant Medical; Visit Provider Nurse Practitioner Family | DX: I87.2 Venous insufficiency (chronic) (peripheral) (principal); E11.622 Type 2 diabetes mellitus with other skin ulcer; L97.828 Non-pressure chronic ulcer of other part of left lower leg with other specified severity | CPT/HCPCS: 97602; G0463 ==

== ENCOUNTER 2024-05-23 15:01 | Outpatient (CLI) | payer MEDICARE, BC, SELFPAY | END 2024-05-23 15:02 | disposition home or self-care (01) | LOC: WOUND 15:01 | PROVIDERS: PCP Physician Assistant Medical; Visit Provider Nurse Practitioner Family | DX: E11.622 Type 2 diabetes mellitus with other skin ulcer; L97.822 Non-pressure chronic ulcer of other part of left lower leg with fat layer exposed | CPT/HCPCS: G0463 ==

== ENCOUNTER 2024-05-27 13:04 | Outpatient (CLI) | payer MEDICARE, BC, SELFPAY | END 2024-05-27 13:05 | disposition home or self-care (01) | LOC: WOUND 13:05 | PROVIDERS: PCP Physician Assistant Medical; Visit Provider Nurse Practitioner Family | DX: I87.2 Venous insufficiency (chronic) (peripheral) (principal); L97.828 Non-pressure chronic ulcer of other part of left lower leg with other specified severity | CPT/HCPCS: G0463 ==

== ENCOUNTER 2024-06-03 13:00 | Outpatient (CLI) | payer MEDICARE, BC, SELFPAY | END 2024-06-03 13:01 | disposition home or self-care (01) | LOC: WOUND 13:01 | PROVIDERS: PCP Physician Assistant Medical; Visit Provider Nurse Practitioner Family | DX: E11.9 Type 2 diabetes mellitus without complications (principal); I87.2 Venous insufficiency (chronic) (peripheral); Z79.84 Long term (current) use of oral hypoglycemic drugs | CPT/HCPCS: G0463 ==